=== PATIENT | female | born 1990 | race Two or more races ===

== ENCOUNTER → 2024-12-05 | Outpatient (CLI) | payer OTHER ==
[~2024-12-05] MED LIST: PROHANCE 279.3MG/ML 15ML VIAL ONE
== END ==
LOC: M PLAIMG 12:34
PROVIDERS: ATTEND Obstetrics & Gynecology Obstetrics
DX: R10.2 Pelvic and perineal pain (principal); Z90.711 Acquired absence of uterus with remaining cervical stump
CPT/HCPCS: 72197; A9576